=== PATIENT | male | born 1935 | race Caucasian/White ===

== ENCOUNTER 2017-02-22 08:17 | Inpatient (IN) | payer MEDICARE, OTHER ==
[~2017-02-22] VITALS: Ht 182.9 cm; Wt 78.6 kg
[2017-02-22] VITALS (16 sets, daily range): BP systolic 131–172; BP diastolic 65–81; PULSE 67–80; RESP 13–18; O2SAT 93–99
[2017-02-22] MEDS ORDERED: MetoCLOpramide 5 mg/mL 2 mL Inj ONE (09:51)
[2017-02-22] MEDS ORDERED: Phenylephrine/NS 100 mCg/mL 10 mL Syringe IVPUSH ONE (09:51)
[2017-02-22] MEDS ORDERED: Ondansetron 2 mg/mL 2 mL Inj ONE (09:51)
[2017-02-22] MEDS ORDERED: Propofol 10,000 mCg/mL 20 mL Inj ONE (09:51)
[2017-02-22] MEDS ORDERED: Dexamethasone 4 mg/mL Inj ONE (09:51)
[2017-02-22] MEDS ORDERED: EPHEDrine/NS 5 mg/mL 5 mL Syringe ONE (09:51)
[2017-02-22] MEDS ORDERED: HYDROmorphone 1 mg/mL Inj ONE (09:51)
[2017-02-22] MEDS ORDERED: Alum-Mag Hydrox-Simeth 30 mL Suspension PO PRN (09:55)
[2017-02-22] MEDS ORDERED: Ondansetron 2 mg/mL 2 mL Inj IVPUSH PRN ×3 (09:55→20:35)
[2017-02-22] MEDS ORDERED: Polyethylene Glycol (PEG) 17 Gm Powder PO PRN ×2 (09:55→20:35)
[2017-02-22 10:33] LABS: BASOPHILS % (AUTO) 0.1 % (0-3); EOSINOPHILS % (AUTO) 2.9 % (0-5); Mean Corpuscular Hemoglobin 31.5 pg (27.0-35.0); Mean Corpuscular Volume 87.7 fL (81-100); NEUTROPHILS % (AUTO) 85.3 % (40-74); Platelet Count 144 bil/L (150-400)
[2017-02-22] MEDS: 0.9% Sodium Chloride 1,000 ML IV SCH ×2 (10:54→20:31)
[2017-02-22 11:07] LABS: Magnesium 1.9 mg/dL (1.6-2.6)
[2017-02-22 11:14] LABS: APPEARANCE,URINE HAZY (CLEAR,HAZY); COLOR,URINE STRAW (YELLOW)
[2017-02-22 11:15] LABS: OCCULT BLOOD,URINE SMALL (NEGATIVE); UROBILINOGEN,URINE NORMAL (NORMAL)
[2017-02-22] MEDS ORDERED: Potassium Chloride 20 mEq SR Tablet PO ONE (11:45)
--- NOTE | 2017-02-22 12:18 | DRSVH ---
PROCEDURE: X-RAY CHEST ONE VIEW, PORTABLE ([id number]) INDICATIONS: preop TECHNIQUE: One view of the chest was acquired. COMPARISON: [facility], , XR CXR 2 VIEW, 09/02/2000, 9:32. FINDINGS: Surgical changes and devices: None. Lungs and pleura: No pleural effusions or pneumothorax. Lungs are clear. Chronic elevation right h emidiaphragm. Mediastinum: Mediastinal contours appear normal. Heart size is normal. Bones and chest wall: No suspicious bony lesions. Overlying soft tissues appear unremarkable. IMPRESSION: No acute cardiopulmonary disease. Dictated by: Michoacano Tavera [facility] Interpreted: Katie Kaur MD on 02/22/2017 at 11:07 Approved by: Katie Kaur MD, PhD on 02/22/2017 at 12:14
--- NOTE | 2017-02-22 13:03 | DRSVH ---
PROCEDURE: X-RAY PELVIS, ONE OR TWO VIEWS ([id number]) INDICATIONS: GLF, AP PELVIS X-RAY, AP LATERAL HIP 2 VIEW TECHNIQUE: Single frontal view of the pelvis acquired. COMPARISON: [facility], CR, XR FEMUR 2VW LT, 02/22/2017, 11:30. [facility], CR, XR HIP 2VW LT, 02/22/2017, 11:30. Outside Film, CR, XR HIP 2VW LT, 02/22/2017, 5:58. FINDINGS: Bones: No previously unidentified fractures or dislocations. No suspicious bony lesions. Soft tissues: Visualized bowel gas pattern is normal. No suspicious soft tissue calcifications. IMPRESSION: Again noted is the mildly impacted and slightly angulated subcapital femoral neck fractur e on the left and no additional injury is seen. Dictated by: Chris Hayes M.D. on 02/22/2017 at 13:01 Approved by: Chris Hayes M.D. on 02/22/2017 at 13:02
--- NOTE | 2017-02-22 13:04 | DRSVH ---
PROCEDURE: X-RAY LEFT HIP COMPLETE, MINIMUM TWO VIEWS ([id number]) INDICATIONS: GLF, AP LATERAL FEMUR TO KNEE, 2 VIEW, PRE-OP TECHNIQUE: 2 views of the hip were acquired. COMPARISON: Outside Film, CR, XR HIP 2VW LT, 02/22/2017, 5:58. FINDINGS: Bones: No previously unidentified fractures or dislocations. There is a mildly impacted and slightl y angulated subcapital left femoral neck fracture No suspicious bony lesions. The visualized pelvic ring appears intact. Soft tissues: No suspicious soft tissue calcifications or masses. IMPRESSION: Stable appearance of the subcapital femoral neck fracture on the left with reference to t he outside comparison films from [facility] Dictated by: Chris Hayes M.D. on 02/22/2017 at 13:02 Approved by: Chris Hayes M.D. on 02/22/2017 at 13:03
--- NOTE | 2017-02-22 13:06 | DRSVH ---
PROCEDURE: X-RAY LEFT FEMUR, TWO VIEWS ([id number]) INDICATIONS: HIP FRACTURE; PREOPERATIVE PLANNING TECHNIQUE: 2 views of the femur were acquired. COMPARISON: None. FINDINGS: Bones: No previously identified fractures or dislocations. No suspicious bony lesions. The mildly impacted and slightly angulated subcapital left femoral neck fracture is not accompanied by additiona l injury more inferiorly. Soft tissues: No suspicious soft tissue calcifications or masses. IMPRESSION: Femoral neck fracture as discussed, but no injury below that area involving the left femu r or knee. Dictated by: Chris Hayes M.D. on 02/22/2017 at 13:03 Approved by: Chris Hayes M.D. on 02/22/2017 at 13:04
[2017-02-22] MEDS ORDERED: LORA1TAB PO (15:07)
[2017-02-22] MEDS ORDERED: PRAM0.252 PO (15:07)
[2017-02-22] MEDS ORDERED: FLUD0.1T PO (15:07)
[2017-02-22] MEDS ORDERED: GABA-500 PO (15:07)
--- NOTE | 2017-02-22 16:38 | PCM.HPMED ---
Subjective Date of Service Feb 22, 2017 Primary Provider: Admitting Physician: Yannick Zepeda MD Primary Care Physician: Vinny Rodas MD Attending Physician: Yannick Zepeda MD Admit Status: Direct Admit, Full Admit, Admit to Red Team Chief Complaint: Ground-level fall/5 hours History of Present Illness: 82-year-old gentleman with no significant past medical history was transferred from [facility] due to left hip fracture following ground-level fall 5 hours ago. Patient states he sometimes sleepwalks and had GLF at 1 AM this morning while sleepwalking. Complains of left hip pain. Did not hit head. Fludrocortisone listed as home medication but patient not sure whether he is currently taking it or why he is taking it. He states he has worsening bilateral feet numbness and decreased sensation for the last 1 month. Merged with [facility] course:XR left femoral neck fracture. Labs unremarkable. transferred to [facility] for orthopedic evaluation Review of Systems: A comprehensive review of systems performed, pertinent positives and negatives included in history of present illness Allergies Coded Allergies: No Known Allergies (Unverified , 02/22/17) Home Medications Fludrocortisone 0.1 mg tablet 2 tablets once daily.PATIENT NOT SURE OF THIS MED Gabapentin 100 mg by mouth at bedtime Pramipexole 0.5 mg tablet, 2 tablets at bedtime Lorazepam 1 mg po prn hs for sleep PMH Melanoma of right face 2000 Surgical History Appendicectomy Melanoma resection Spine surgery,L4L5 decompression 2012 Family History Reviewed and unremarkable Social History Hx Alcohol Use: Yes Alcoholic Drinks Per Day: 5 a week Hx Substance Use: No Exam Vital Signs Vital Sign - Last Date Time Temp Pulse Resp B/P Pulse Ox O2 Delivery O2 Flow Rate FiO2 02/22/17 13:24 37.0 68 18 146/78 93 Nasal Cannula 4.00 Exam Gen. patient is lying comfortably in hospital bed HEENT: Head is normocephalic atraumatic, Pupils equal and reactive, extraocular movements intact, Lungs clear to auscultation bilaterally Heart regular rate and rhythm without murmurs gallops or rubs Abdomen soft nontender without hepatosplenomegaly Extremities pulses are present dorsalis pedis posterior tibialis and radial. Left hip tenderness on passive movement. Psych alert and oriented to person place and time Neuro cranial nerves II through XII are grossly intact Lymph: There is no lymphadenopathy appreciated in the cervical supra infraclavicular regions : no vu Lab and Diagnostics Result Diagram: 02/22/17 1024 02/22/17 1024 X-Rays, CTs and MRIs PROCEDURE: X-RAY LEFT FEMUR, TWO VIEWS ([id number]) INDICATIONS: HIP FRACTURE; PREOPERATIVE PLANNING IMPRESSION: Femoral neck fracture as discussed, but no injury below that area involving the left femur or knee. Dictated by: Chris Hayes M.D. on 02/22/2017 at 13:03 PROCEDURE: X-RAY CHEST ONE VIEW, PORTABLE ([id number]) INDICATIONS: preop IMPRESSION: No acute cardiopulmonary disease. Dictated by: Michoacano Tavera [facility] Interpreted: Katie Kaur MD on 02/22/2017 at 11:07 12-lead ECG NSR Assessment & Plan 82-year-old gentleman with no significant past medical history was transferred from [facility] due to left hip fracture following ground-level fall 5 hours ago. # Left femoral fracture,acute,poa -EKG,CXR unremarkable -Patient's low risk and medically optimized for procedure -Pain control with morphine -SCD for dvt ppx for now -Orthopedics Dr. Maddox consulted -Urinalysis negative #Ground-level fall -Multifactorial(suspected bilateral lower extremity peripheral neuropathy, sleepwalking, use of benzodiazepines -will consider stopping lorazepam upon discharge. Continue Neurontin for peripheral neuropathy Patient admitted under inpatient status with expected length of stay > 2 midnights for severity of present symptoms, complexities of treatment plan and risk for adverse events full code ,verified from patient Yannick Zepeda MD Feb 22, 2017 16:38
[2017-02-22] MEDS ORDERED: LORazepam 1 mg Tablet PO PRN (16:50)
--- NOTE | 2017-02-22 16:55 | NUR ---
Admit Patient arrives to [facility] alert and oriented on 4 liters of oxygen via nasal cannula, states pain is within a tolerable level. Denies any nausea, chest pain or shortness of breath. Patient has easily palpable dorsal pedal pulse, is able to move left lower extremity and has sensation to lower extremity. Patient does state that he has some baseline bilateral tingling to the toes. Ordered IV fluids administered. Care is ongoing.
--- NOTE | 2017-02-22 16:57 | NUR ---
Off Unit Patient off unit to OR. Upon transfer patient alert and oriented, states pain is within a tolerable level. Patient still has palpable pulse and is able to move and feel lower extremity. Patient continues to have some baseline tingling to bilateral toes. Anticipate return to floor.
--- NOTE | 2017-02-22 19:07 | PCM.HPANE ---
Patient Data Date of Service: Feb 22, 2017 ([id number]) Surgeon Admitting Provider:Yannick Zepeda MD Attending Provider:Yannick Zepeda MD Primary Care Physician:Vinny Rodas MD Other Provider: Reason for Visit Left Hip Fx Glf LEFT HIP FX GLF Ht/WT & BMI Height (Feet): 6 Height (Inches): 0.00 Weight (Kilograms): 79.000 Body Mass Index 23.59 Allergies Coded Allergies: No Known Allergies (Unverified , 02/22/17) Past Anesthesia History Anesthesia History: Denies:: Anesthesia Reactions MRSA MRSA: No Medications Hypertension Medication: No Home Meds Incl Beta Mele: No Reported Medications Lorazepam 1 Mg Tablet1 Mg PO HS PRN For Insomnia Ref 0 02/22/17 Pramipexole Dihydrochloride (Mirapex)0.25 Mg Tablet0.25 Mg PO 02/22/17 Gabapentin 100 Mg [id number] Mg PO DAILY 30 Days Ref 0 02/22/17 Fludrocortisone Acetate 0.1 Mg Tablet0.1 Mg PO UD 02/22/17 History History of ENT Problems?: No HEENT History: Positive for:: Sinus Problem (some kind of infection) Denies:: Cataracts (10 years ago) Dysphagia Glaucoma Denture Type: None Teeth Condition: Tooth Decay Missing Teeth Hx of Heart Problems?: No Cardiovascular History: Positive for:: Irregular Heartbeat Denies:: Cardiac Surgery Chest Pain Congestive Heart Failure Edema Heart Murmur Hypertension Pacemaker Hx of Respiratory Problem?: No Respiratory History: Denies:: Asthma COPD Chest Surgery Emphysema Pneumonia Tuberculosis Hx Neurologic Problems?: Yes Neurological History: Positive for:: Dizziness Denies:: Alzheimer's Disease CVA Dementia Headaches Parkinson's Disease Seizures TIA Other Neurological Pertinent: Restless legs Hx of GI Problems?: No Gastrointestinal History: Denies:: Gastroesphageal Reflux Hx of Problems?: Yes Genitourinary History: Positive for:: Urinary Tract Infection Denies:: Kidney Stones Other Pertinent History: urge incontinace "have to go and can't stop it" Male Hx: Denies:: Prostate Problems Scrotal Mass Testicular Surgery Hx Musculoskeletal Problems?: Yes Musculoskeletal History: Denies:: Back Injury Joint Replacement Musculoskeletal Trauma Other History/Comment L hip fracture Hx of Psycho/Social Problems?: Yes Psycho Social History: Positive for:: Anxiety Denies:: Bipolar Disorder Hx Depression Suicide Attempt Hx Surgeries?: Yes (Back and appendicitis) Hx Any Other Health Problems?: Yes Other History: Positive for:: Cancer (melanoma face ) Hospitalization History Blood Transfusions: Positive for:: Accept Blood Products? Denies:: Blood Transfuse Reaction Blood Transfusions Hx Alcohol Use: YesAlcoholic Drinks Per Day: 5 a weekHx Substance Use: No Smoking Status: Never Smoker Have You Smoked inLast 12 mo: No Stop/Bang Treated for Sleep Apnea?: Yes (no treatmnt last 3-4 years) S-Snoring: Do You Snore Loudly: Yes T-Tired: feel tired, fatigued: Yes O-Obsered: Observed not breath: Yes P-Blood Pressure: treated: No B- Body Mass Index > 35 kg/m2: No A- Age over 50: Yes N- Neck Large Circumference: No G- Gender Male: Yes ALISSON Total Score: 4 ALISSON Risk Assessment: High Risk, =/>3 Yes ALISSON Category 1: Yes Risk Assessment Category Category 1A: Patient has history of documented sleep apnea, and HAS NOT received any narcotic, sedative or anesthesia administration during this stay. Category 1B: Patient has history of documented sleep apnea, and HAS received any narcotic , sedative or anesthesia administration during this stay Category 2: Patient has SUSPECTED Obstructive Sleep Apnea, and HAS received any narcotic , sedative or anesthesia administration during this stay. Category 3: Patient has SUSPECTED Obstructive Sleep Apnea and HAS NOT received narcotic, sedative or anesthesia administration during this stay. Category 4: Outpatient in Procedural Areas with known sleep apnea or who screen positive for High Risk via the STOP/BANG questionnaire. Exam Exam Vital Signs Vital Signs Date Time Temp Pulse Resp B/P Pulse Ox O2 Delivery O2 Flow Rate FiO2 02/22/17 13:24 37.0 68 18 146/78 93 Nasal Cannula 4.00 02/22/17 12:42 67 General Appearance: Alert, Oriented X3, Cooperative, No Acute Distress HEENT/AIRWAY: MP 2, Neck Movement (from), Mouth Opening (>3), Other (tmd>3) Lungs: Diminished Heart: Exam Unremarkable, Regular Rate/Rhythm, Normal S1, Normal S2, No Murmurs /Rubs/Gallops Meds/Labs/Diagnostics Admission Meds Current Medications Sodium Chloride (Normal Saline) 1,000 ml @ 70 mls/hr [id number] IV Last administered on 02/22/17 10:54; Start 02/22/17 at 09:52 Potassium Chloride (K-Dur) 40 meq ONCE ONCE PO Last administered on 02/22/17 12:20; Start 02/22/17 at 11:45; Stop 02/22/17 at 11:57; Status DC Labs Test 02/22/17 10:24 02/22/17 10:34 White Blood Count 10.4th/mm3 (3.8-10.1) Red Blood Count 3.91mil/mm3 (4.40-5.80) Hemoglobin 12.3g/dL (13.8-17.2) Hematocrit 34.3% (41.0-50.0) Mean Corpuscular Volume 87.7fL (81-100) Mean Corpuscular Hemoglobin 31.5pg (27.0-35.0) Mean Corpuscular Hemoglobin Concent 35.9% (32.0-37.0) Red Cell Distribution Width 12.6% (12.3-15.4) Platelet Count 144bil/L (150-400) Neutrophils (%) (Auto) 85.3% (40-74) Lymphocytes (%) (Auto) 6.4% (14-46) Monocytes (%) (Auto) 5.0% (4-12) Eosinophils (%) (Auto) 2.9% (0-5) Basophils (%) (Auto) 0.1% (0-3) Prothrombin Time 10.7sec (8.1-12.5) Prothromb Time International Ratio 1.00ratio Sodium Level 141mEq/L (134-144) Potassium Level 3.3mEq/L (3.5-5.2) Chloride Level 104mEq/L (97-108) Carbon Dioxide Level 23mmol/L (18-29) Blood Urea Nitrogen 22mg/dL (8-27) Creatinine 0.75mg/dL (0.76-1.27) Estimat Glomerular Filtration Rate 105mL/min (>59) Glucose Level 101mg/dL (60-99) Calcium Level 8.6mg/dL (8.5-10.1) Magnesium Level 1.9mg/dL (1.6-2.6) Total Bilirubin 1.1mg/dL (0.0-1.2) Aspartate Amino Transf (AST/SGOT) 22U/L (0-50) Alanine Aminotransferase (ALT/SGPT) 17U/L (0-44) Alkaline Phosphatase 49U/L (25-160) Total Protein 6.1g/dL (6.4-8.4) Albumin 4.0g/dL (3.4-5.0) Hold Dumont Top Tube Received (Received) Urine Color Straw (YELLOW) Urine Appearance Hazy (CLEAR,HAZY) Urine pH 7.0 (5.0-8.0) Urine Specific [place] 1.015 (1.003-1.035) Urine Protein Negativemg/dL (NEG,TRACE) Urine Glucose (UA) Negativemg/dL (NEGATIVE) Urine Ketones Negativemg/dL (NEGATIVE) Urine Occult Blood Small (NEGATIVE) Urine Nitrite Negative (NEGATIVE) Urine Bilirubin Negative (NEGATIVE) Urine Urobilinogen Normalmg/dL (NORMAL) Urine Leukocyte Esterase Negative (NEGATIVE) Urine RBC 3-10/hpf (0-2) Urine WBC 0-5/hpf (0-5) Urine Epithelial Cells Occasional/hpf (NONE-MOD) Urine Crystals None seen (NONE SEEN) Urine Bacteria None/hpf (NONE-FEW) Urine Hyaline Casts None/lpf (NONE) Urine Granular Casts None seen (NONE SEEN) Urine Waxy Casts None seen (NONE SEEN) Urine Red Blood Cell Casts None seen (NONE SEEN) Urine White Blood Cell Casts None seen (NONE SEEN) Urine Mucus None seen (None Seen) Urine Trichomonas None seen (NONE SEEN) Urine Yeast None (NONE SEEN) Urinalysis Comment None Urine Culture Reflexed Not indicated Plan Impression Patient chart reviewed, patient interviewed and anesthestic plan with risks, benefits, and alternatives discussed, and informed consent obtained. NPO per Anesth. Guidelines: Yes ASA Physical Status: ASA2 Plus Emergency Anesthetic Plan: GA Bene/Risks/Altern/Consents: Yes HP Complete Prior to Induction: Yes Avni Mathews MD Feb 22, 2017 19:07
[2017-02-22] MEDS ORDERED: Lactated Ringer's 1,000 ML IV SCH (19:08)
[2017-02-22] MEDS ORDERED: Lactated Ringer's 500 ML IV PRN (19:08)
[2017-02-22] MEDS ORDERED: EPHEDrine Sulfate 50 mg/mL Inj IVPUSH PRN (19:10)
[2017-02-22] MEDS ORDERED: fentaNYL-PF 50 mCg/mL 2 mL Inj IVPUSH PRN (19:10)
[2017-02-22] MEDS ORDERED: HYDROmorphone 1 mg/mL Inj IVPUSH PRN (19:10)
[2017-02-22] MEDS ORDERED: Phenylephrine 10,000 mCg/mL Inj IVPUSH PRN (19:10)
[2017-02-22] MEDS ORDERED: Dexamethasone 4 mg/mL Inj IVPUSH PRN (19:10)
[2017-02-22] MEDS ORDERED: MetoCLOpramide 5 mg/mL 2 mL Inj IVPUSH PRN (19:10)
--- NOTE | 2017-02-22 20:12 | DRSVH ---
PROCEDURE: X-RAY LEFT HIP COMPLETE, MINIMUM TWO VIEWS ([id number]) INDICATIONS: LEFT HIP ORIF TECHNIQUE: Multiple intraoperative views of the hip were acquired. COMPARISON: None. FINDINGS: Bones: Multiple intraoperative fluoroscopic views demonstrate cannulated screw placement through a fe moral neck fracture. IMPRESSION: Left femoral neck ORIF. Dictated by: Jaycee Harvey M.D. on 02/22/2017 at 20:10 Approved by: Jaycee Harvey M.D. on 02/22/2017 at 20:11
[2017-02-22] MEDS ORDERED: diphenhydrAMINE 25 mg Capsule PO PRN (20:35)
[2017-02-22] MEDS ORDERED: Magnesium Hydroxide 10 mL Oral Concentration PO PRN (20:35)
[2017-02-22] MEDS ORDERED: Sodium Biphos-Phos 133 mL Enema RECTAL PRN (20:35)
--- NOTE | 2017-02-22 21:07 | PCM.ANEP1 ---
Post Anesthesia PACU Phase 1 Assessment Date of Service: Feb 22, 2017 Vital Signs Vital Signs Date Time Temp Pulse Resp B/P Pulse Ox O2 Delivery O2 Flow Rate FiO2 02/22/17 21:05 80 13 141/78 96 Nasal Cannula 4 02/22/17 21:00 79 13 134/68 96 Nasal Cannula 4 02/22/17 20:55 72 16 137/74 96 Nasal Cannula 4 02/22/17 20:50 71 16 144/66 96 Nasal Cannula 4 02/22/17 20:45 72 16 141/65 96 Nasal Cannula 4 02/22/17 20:40 70 16 143/67 95 Nasal Cannula 4 02/22/17 20:35 73 16 137/68 95 Nasal Cannula 4 02/22/17 20:30 73 13 144/72 94 Nasal Cannula 3 02/22/17 20:25 72 16 135/71 95 Nasal Cannula 3 02/22/17 20:20 74 16 131/70 95 Nasal Cannula 3 02/22/17 20:15 73 16 149/71 99 Simple Mask 8 02/22/17 20:10 36.7 73 16 140/71 99 Simple Mask 8 02/22/17 13:24 37.0 68 18 146/78 93 Nasal Cannula 4.00 Anesthetic Administered: GA Level of Alertness: Awake, talking SANCHEZ's with Equal Strength: Yes Pain: Yes Pain Scale Score: 4 Nausea or Vomiting: No CV Function & Hydration Stable: Yes Airway Device: none Oxygen Delivery: Nasal Cannula Lungs: Diminished Summary 02/22/17 21:05 80 13 141/78 96 Nasal Cannula 4 PACU Phase 2 Assessment Complications: No Follow up Care: N/A Patient Instructions Provided: N/A Avni Mathews MD Feb 22, 2017 21:07
--- NOTE | 2017-02-22 21:18 | DRSVH ---
PROCEDURE: X-RAY PELVIS W/LAT HIP (LT) ([id number]) INDICATIONS: post op hip fracture TECHNIQUE: AP pelvis and lateral view of the left hip acquired. COMPARISON: None. FINDINGS: Bones: Patient is status post left femoral neck ORIF with hardware components in expected positions. The hip joint appears congruent. The visualized bony structures appear intact. Soft tissues: Overlying postoperative changes are noted. No suspicious soft tissue densities. IMPRESSION: Status post left femoral neck ORIF. Dictated by: Jaycee Harvey M.D. on 02/22/2017 at 21:16 Approved by: Jaycee Harvey M.D. on 02/22/2017 at 21:17
[2017-02-22 22:16] LABS: APPEARANCE,URINE CLEAR (CLEAR,HAZY); COLOR,URINE YELLOW (YELLOW); OCCULT BLOOD,URINE MODERATE (NEGATIVE); UROBILINOGEN,URINE NORMAL (NORMAL)
[2017-02-23] VITALS (8 sets, daily range): BP systolic 111–170; BP diastolic 64–88; PULSE 69–89; RESP 16–19; O2SAT 92–98
[2017-02-23] MEDS: 0.9% Sodium Chloride 1,000 ML IV SCH ×2 (00:10→03:12)
[2017-02-23] MEDS: Sodium Chloride LOK Flush 10 mL Syringe IV SCH ×3 (00:30→16:24)
[2017-02-23] MEDS: CeFAZolin Inj 2 GM in IV Premix 1 EACH IV SCH ×2 (00:50→09:00)
--- NOTE | 2017-02-23 03:02 | CONS ---
[address] [address] CONSULTATION REPORT PATIENT: BERNARDO FLYNN : 1935 MR#: [id number] ADMIT: 02/22/2017 JOB ID: [id number] DATE OF SERVICE: 02/22/2017 CHIEF COMPLAINT: An 82-year-old male who fell, ground level fall at [place] when he tripped while sleepwalking. The patient sustained an valgus impacted left femoral neck fracture. The patient requested transfer to [facility] and he was transported by air. The patient was admitted to the hospitalist service. CPT Code orthopedic consultation [id number] decision for surgery. The patient is having moderate discomfort in the left hip. Not moving the hip decreases his pain. REVIEW OF SYSTEMS: HEENT: No blurring of vision. Respiratory: No shortness of breath. Cardiovascular: No chest pain. GI: No nausea, vomiting. : No dysuria. Musculoskeletal: Left hip pain. Neuro: No headache or dizziness. Hematologic: No easy bleeding or bruising. Psychiatric: No anxiety or depression. ALLERGIES: None. CURRENT MEDICATIONS: 1. Fludrocortisone 0.1 mg 2 tablets once daily. Questionable if this patient takes this medication. 2. Gabapentin 100 mg at bedtime. 3. Pramipexole 0.5 mg 2 tablets at bedtime. 4. Lorazepam 1 mg at bedtime for sleep. PAST MEDICAL HISTORY: Positive for melanoma of the face in 2000. PRIOR SURGERIES: Melanoma resection, appendectomy and spine surgery L4-5 decompression in 2012. SOCIAL HISTORY: The patient lives in [place]. He does have a son and a . We do not have a phone for the and I have tried contacting the son at least three times today, but I was only able to leave one message. The patient states he does drink five times a week. PHYSICAL EXAMINATION: Vital Signs: 182 cm, 79 kg male. Blood pressure 153/79, temperature 36.9, pulse of 79, O2 saturation 93% on 3 L. The patient is lying in bed. He is alert and oriented. He has pain in his left hip. The left leg is not shortened or rotated. Peripheral pulses are full. Skin is dry and intact. He is able to move his foot without difficulty. LABORATORY TESTING: White count 10,400, hemoglobin 12.3, hematocrit 34.3, platelet count 144,000. PT of 10.7, INR of 1. Sodium 141, potassium 3.3, chloride 104, CO2 23, BUN 22, creatinine 0.75, glucose random 101. Total protein at 6.1. The patient has already been made n.p.o. X-RAYS: Valgus impacted left femoral neck fracture. The fracture has stayed in position despite his long transport from [place] via airplane and then subsequent ambulance. IMPRESSION: Valgus impacted left femoral neck fracture. PLAN: We will plan for cannulated screw fixation of the left hip today. The patient is aware of the risks for bleeding, infection, pain and stiffness, possibility for damage to surrounding neurovascular structures. He is aware of the possibility for delayed union, nonunion, malunion and hardware failure and potential for additional surgery. Surgical consent has been signed. Cc: [facility]
--- NOTE | 2017-02-23 03:21 | NUR ---
Postop Patient back to floor around 2119 in own bed. A&Ox3 but sleepy, easily awakens with verbal stimuli. Heath patent and draining per gravity. On 4L NC. CPOx place- 97%. SCDs placed. Tele on- SR in 80s. Denies pain or discomfort. Oriented to room and call light.
[2017-02-23 05:40] LABS: BASOPHILS % (AUTO) 0.1 % (0-3); MONOCYTES % (AUTO) 2.2 % (4-12); Mean Corpuscular Hemoglobin 31.7 pg (27.0-35.0); Mean Corpuscular Volume 88.7 fL (81-100); NEUTROPHILS % (AUTO) 91.4 % (40-74); Platelet Count 148 bil/L (150-400)
--- NOTE | 2017-02-23 06:19 | OP ---
[address] [address] OPERATIVE REPORT PATIENT: BERNARDO FLYNN : 1935 MR#: [id number] ADMIT: 02/22/2017 JOB ID: [id number] DATE OF SURGERY: 02/22/2017 PREOPERATIVE DIAGNOSIS(ES): Impacted left femoral neck fracture. ICD 10 code S72.0028. POSTOPERATIVE DIAGNOSIS(ES): Impacted left femoral neck fracture. ICD 10 code S72.0028. PROCEDURE: Open reduction, internal fixation, valgus impacted left femoral neck fracture. CPT Code 06508. IMPLANTS UTILIZED: Synthes cannulated screws. SURGEON: Daniel Maddox MD. MAINTENANCE CONTROLLER: None. ANESTHESIA: General. ESTIMATED BLOOD LOSS: 50 mL. DRAINS: None. COMPLICATIONS: None. SPONGE AND NEEDLE: Count correct. SPECIMEN: No specimen to pathology. INDICATIONS: This is an 82-year-old male with sleepwalking and tripped and fell over at [place] where he lives this morning. He was transferred from [facility] in [place] to our facility today. The patient had been kept n.p.o. DESCRIPTION OF PROCEDURE: Under adequate general anesthesia, the patient was carefully removed from the bed and placed on the fracture table after he was already anesthetized. The right leg was placed in a scissor technique utilizing the Keiser fracture table. The left leg was also placed in a leg holding boot. No traction was utilized. The left hip was prepped and draped in sterile fashion. After appropriate time-out was called, x-rays were taken confirming good position of the fracture with maintenance of the valgus impacted position. An incision was fashioned along the inferior aspect of the greater trochanter. Incision was carried down to the tensor fascia ubaldo and the vastus lateralis. Portion of the vastus lateralis was swept from the bone. Utilizing the cannulated guide, three threaded Synthes guide pins were then directed in the femoral neck and head to slightly in the midline and one posterior. Image intensification confirmed good position of the guide pins in the AP and lateral views. Each of the guide pins was subsequently measured. The outer cortex was drilled and the self-tapping screws were then placed in under power. Most proximal screw utilized was a 95 mm short threaded screw. The other two screws were measured and 105 mm short threaded Synthes 7.5 mm cannulated screws were placed. Image intensification confirmed good position of the three screws in AP and lateral views. The guide pins were subsequently removed. There was good purchase within the bone. Permanent x-rays were taken with image intensification. The wound was irrigated with saline. The vastus lateralis was subsequently closed with running suture of #1 Vicryl. The tensor fascia ubaldo was closed with interrupted [id number] sutures of #1 Vicryl. Subcutaneous layers were closed with interrupted sutures of 0 and 2-0 Vicryl and skin was reapproximated with sharla. Xeroform and dry sterile dressing was applied. The patient was carefully taken off the fracture table and placed back in his bed. Permanent x-rays in the recovery room also confirmed good position of the hardware on AP and lateral views. PLAN: The patient may be partial weightbearing 50% of his body weight with a rolling walker with physical therapy. He does live in [place]. Takes numerous medications to help with sleep, but he also has problems with sleepwalking. He therefore would be at a high risk for falling. I did try contacting his son on three separate occasions today, but the phone number we have available there was no response from an individual. Perhaps another phone number may be able to be obtained. The patient will need to have sharla removed in two weeks. I suspect he will probably need long-term facility before trying before trying to be able to be returned to his regular home. He may see one of the PAs in follow up in two weeks and I will see him back at the six week postoperative time frame. I would suggest he remains partial weightbearing for that additional full six weeks. The patient is aware there is always the potential for delayed union, nonunion, malunion and a hardware failure with these fractures. Cc: [facility].
[2017-02-23] MEDS: Senna-Docusate 8.6-50 mg Tablet PO SCH ×2 (09:00→21:03)
--- NOTE | 2017-02-23 09:47 | PCM.PNORTH ---
Subjective Date of Service: Feb 23, 2017 Visit Information: Reason for Visit Left Hip Fx Glf Surgery/Surgery Date Post-Op Day # 1 Date of Admission: Feb 22, 2017 at 09:18 Hospital Day # Subjective Patient states he began having pain in his hip a few hours ago but states it is tolerable. He has no other concerns. Postop General: No Complaints, No Shortness of Breath, No Chest Pain, Good Appetite Pain Management: PO Objective Exam Objective Patient sitting up in bed eating breakfast Vital Signs and I/O Vital Sign - Last Date Time Temp Pulse Resp B/P Pulse Ox O2 Delivery O2 Flow Rate FiO2 02/23/17 08:21 36.9 85 16 170/88 98 Nasal Cannula 3.00 Intake and Output 02/22/17 02/22/17 02/23/17 Cumulative From/Thru 15:00 23:00 07:00 02/22/17 09:37 - 02/23/17 05:57 Intake Total 1058 ml 868 ml 1926 ml Output Total 750 ml 325 ml 1075 ml Balance 308 ml 543 ml 851 ml Intake Oral 0 ml 300 ml 300 ml IV Total 1058 ml 568 ml 1626 ml Output Urine Total 700 ml 325 ml 1025 ml Estimated Blood Loss 50 ml 50 ml # Bowel Movements 0 0 Lab & Micro Results Laboratory Tests Test 02/22/17 10:24 02/22/17 10:34 02/22/17 21:48 02/23/17 04:55 White Blood Count 10.4th/mm3 (3.8-10.1) 9.2th/mm3 (3.8-10.1) Red Blood Count 3.91mil/mm3 (4.40-5.80) 3.91mil/mm3 (4.40-5.80) Hemoglobin 12.3g/dL (13.8-17.2) 12.4g/dL (13.8-17.2) Hematocrit 34.3% (41.0-50.0) 34.7% (41.0-50.0) Mean Corpuscular Volume 87.7fL (81-100) 88.7fL (81-100) Mean Corpuscular Hemoglobin 31.5pg (27.0-35.0) 31.7pg (27.0-35.0) Mean Corpuscular Hemoglobin Concent 35.9% (32.0-37.0) 35.7% (32.0-37.0) Red Cell Distribution Width 12.6% (12.3-15.4) 12.7% (12.3-15.4) Platelet Count 144bil/L (150-400) 148bil/L (150-400) Neutrophils (%) (Auto) 85.3% (40-74) 91.4% (40-74) Lymphocytes (%) (Auto) 6.4% (14-46) 5.0% (14-46) Monocytes (%) (Auto) 5.0% (4-12) 2.2% (4-12) Eosinophils (%) (Auto) 2.9% (0-5) 1.0% (0-5) Basophils (%) (Auto) 0.1% (0-3) 0.1% (0-3) Prothrombin Time 10.7sec (8.1-12.5) Prothromb Time International Ratio 1.00ratio Sodium Level 141mEq/L (134-144) Potassium Level 3.3mEq/L (3.5-5.2) Chloride Level 104mEq/L (97-108) Carbon Dioxide Level 23mmol/L (18-29) Blood Urea Nitrogen 22mg/dL (8-27) Creatinine 0.75mg/dL (0.76-1.27) Estimat Glomerular Filtration Rate 105mL/min (>59) Glucose Level 101mg/dL (60-99) Calcium Level 8.6mg/dL (8.5-10.1) Magnesium Level 1.9mg/dL (1.6-2.6) Total Bilirubin 1.1mg/dL (0.0-1.2) Aspartate Amino Transf (AST/SGOT) 22U/L (0-50) Alanine Aminotransferase (ALT/SGPT) 17U/L (0-44) Alkaline Phosphatase 49U/L (25-160) Total Protein 6.1g/dL (6.4-8.4) Albumin 4.0g/dL (3.4-5.0) Hold Dumont Top Tube Received (Received) Urine Color Straw (YELLOW) Yellow (YELLOW) Urine Appearance Hazy (CLEAR,HAZY) Clear (CLEAR,HAZY) Urine pH 7.0 (5.0-8.0) 7.0 (5.0-8.0) Urine Specific [place] 1.015 (1.003-1.035) 1.015 (1.003-1.035) Urine Protein Negativemg/dL (NEG,TRACE) Negativemg/dL (NEG,TRACE) Urine Glucose (UA) Negativemg/dL (NEGATIVE) Negativemg/dL (NEGATIVE) Urine Ketones Negativemg/dL (NEGATIVE) Negativemg/dL (NEGATIVE) Urine Occult Blood Small (NEGATIVE) Moderate (NEGATIVE) Urine Nitrite Negative (NEGATIVE) Negative (NEGATIVE) Urine Bilirubin Negative (NEGATIVE) Negative (NEGATIVE) Urine Urobilinogen Normalmg/dL (NORMAL) Normalmg/dL (NORMAL) Urine Leukocyte Esterase Negative (NEGATIVE) Negative (NEGATIVE) Urine RBC 3-10/hpf (0-2) 3-10/hpf (0-2) Urine WBC 0-5/hpf (0-5) 0-5/hpf (0-5) Urine Epithelial Cells Occasional/hpf (NONE-MOD) Occasional/hpf (NONE-MOD) Urine Crystals None seen (NONE SEEN) None seen (NONE SEEN) Urine Bacteria None/hpf (NONE-FEW) None/hpf (NONE-FEW) Urine Hyaline Casts None/lpf (NONE) None/lpf (NONE) Urine Granular Casts None seen (NONE SEEN) None seen (NONE SEEN) Urine Waxy Casts None seen (NONE SEEN) None seen (NONE SEEN) Urine Red Blood Cell Casts None seen (NONE SEEN) None seen (NONE SEEN) Urine White Blood Cell Casts None seen (NONE SEEN) None seen (NONE SEEN) Urine Mucus None seen (None Seen) None seen (None Seen) Urine Trichomonas None seen (NONE SEEN) None seen (NONE SEEN) Urine Yeast None (NONE SEEN) None (NONE SEEN) Urinalysis Comment None None Urine Culture Reflexed Not indicated Not indicated Result Diagram: 02/23/17 0455 02/22/17 1024 General Appearance: Alert, Oriented X3, Cooperative, No Acute Distress Extremities: Distal Pulses Palpable, Warm, No Edema, No Compartment Syndrom Noted, Thigh & Calf Soft/Nontender, Cyanotic Postop Sensory Motor: Distal Motor Intact, Movement in Toes, Distal Sensation Intact, NVI Distally SURGICAL WOUND : Wound Location/Description Perioperative dressings c/d/i Activity: Ambulate with PT (50% WB with a FWW) Assessment & Plan Impression Postop day #1 left hip ORIF with cannulated screws Problems: Plan Patient is reportedly a sleep walker and takes multiple medications for sleep. He is likely at a higher risk for a fall due to his sleep walking and should be monitored carefully. Weightbearin% weightbearing on the left lower extremity with a front wheeled walker DVT prophylaxis: Lovenox 40 mg subcutaneous daily 3 weeks. Physical therapy for transfers, progressive ambulation, strengthening Wound care: Dressing will be changed tomorrow to an island dressing. Analgesia: Oral analgesia, preferably non-narcotic. Discharge plan: Discharge home vs SNF in 1-2 days. I have placed an order for compression stockings. Please apply bilateral thigh high compression stockings. Follow-up plan: In 2 weeks at [facility] with DIANA for wound check and at [address] Maddox with x-rays VTE Prophylaxis: Sub-Q Enoxaparin (40mg SQ QD [id number]) Roxana Acevedo PA-C Feb 23, 2017 09:47
--- NOTE | 2017-02-23 12:30 | PCM.PNMED ---
Subjective Date of Service Feb 23, 2017 Subjective Underwent ORIF, pain controlled. Exam Vital Signs Vital Sign - Last Date Time Temp Pulse Resp B/P Pulse Ox O2 Delivery O2 Flow Rate FiO2 02/23/17 12:23 36.1 69 16 139/70 94 Nasal Cannula 3.00 Intake and Output 02/22/17 02/22/17 02/23/17 Cumulative From/Thru 15:00 23:00 07:00 02/22/17 09:37 - 02/23/17 05:57 Intake Total 1058 ml 868 ml 1926 ml Output Total 750 ml 325 ml 1075 ml Balance 308 ml 543 ml 851 ml Intake Oral 0 ml 300 ml 300 ml IV Total 1058 ml 568 ml 1626 ml Output Urine Total 700 ml 325 ml 1025 ml Estimated Blood Loss 50 ml 50 ml # Bowel Movements 0 0 Exam Gen. patient is lying comfortably in hospital bed HEENT: Head is normocephalic atraumatic, Pupils equal and reactive, extraocular movements intact, Lungs clear to auscultation bilaterally Heart regular rate and rhythm without murmurs gallops or rubs Abdomen soft nontender without hepatosplenomegaly Extremities pulses are present dorsalis pedis posterior tibialis and radial. Left hip tenderness on passive movement. Psych alert and oriented to person place and time Neuro cranial nerves II through XII are grossly intact Lymph: There is no lymphadenopathy appreciated in the cervical supra infraclavicular regions : no vu IVs and Medications Medications Reviewed: Medications were reviewed in detail Lab and Diagnostics Result Diagram: 02/23/17 0455 02/22/17 1024 X-Rays, CTs and MRIs PROCEDURE: X-RAY LEFT FEMUR, TWO VIEWS ([id number]) INDICATIONS: HIP FRACTURE; PREOPERATIVE PLANNING IMPRESSION: Femoral neck fracture as discussed, but no injury below that area involving the left femur or knee. Dictated by: Chris Hayes M.D. on 02/22/2017 at 13:03 PROCEDURE: X-RAY CHEST ONE VIEW, PORTABLE ([id number]) INDICATIONS: preop IMPRESSION: No acute cardiopulmonary disease. Dictated by: Michoacano Tavera RRA Interpreted: Katie Kaur MD on 02/22/2017 at 11:07 12-lead ECG NSR Additional Diagnostics DATE OF SURGERY: 02/22/2017 PREOPERATIVE DIAGNOSIS(ES): Impacted left femoral neck fracture. ICD 10 code S72.0028. POSTOPERATIVE DIAGNOSIS(ES): Impacted left femoral neck fracture. ICD 10 code S72.0028. PROCEDURE: Open reduction, internal fixation, valgus impacted left femoral neck fracture. CPT Code 23196. IMPLANTS UTILIZED: Synthes cannulated screws. SURGEON: Daniel Maddox MD. Assessment & Plan 82-year-old gentleman with no significant past medical history was transferred from [facility] due to left hip fracture following ground-level fall 5 hours ago. # Left femoral fracture,acute,poa -Pain control with morphine -Lovenox 40 mg sc daily dvt ppx -Orthopedics Dr. Maddox -Urinalysis negative -PT #Ground-level fall -Multifactorial(suspected bilateral lower extremity peripheral neuropathy, sleepwalking, use of benzodiazepines -will consider stopping lorazepam upon discharge. Continue Neurontin for peripheral neuropathy Patient admitted under inpatient status with expected length of stay > 2 midnights for severity of present symptoms, complexities of treatment plan and risk for adverse events full code ,verified from patient Disposition: Discharge in 1-2 days to halfway facility VTE Prophylaxis: Sub-Q Enoxaparin (40mg SQ QD [id number]) VTE Mechanical Devices: Intermittant Pneumatic CD Yannick Zepeda MD Feb 23, 2017 12:30
--- NOTE | 2017-02-23 17:22 | NUR ---
Social Work: Initial Assessment/Multi-Disciplinary Rounds D: EMR reviewed. Please see Initial Assessment linked to this note for more information. Pt is an 82 y/o male admitted left hip fracture, ground level fall per H&P. Pt has a readmit risk score of 0. SW met with pt at bedside to conduct initial assessment. Pt was alert and oriented x3. SW explained role and wrote phone number on white board. SW provided "Your Discharge Planning Checklist" and encouraged pt to contact SW for any discharge planning questions. Pt had guests in the room and asked that SW complete assessment with spouse/DPOA Tammi Tinajero. Pt's insurance is Medicare and [facility] [employer] Supplemental. PCP is Regino Dye MD. Pt gave verbal consent to contact spouse/DPOA Tammi Lior [phone] for discharge planning. DPOA/advanced directive ppw discussed - ppw completed and SW encouraged pt to provide a copy to the hospital. Pt owns a 4WW which pt uses for ambulation. Pt is independent with all ADLs at baseline. Pt discussed in multidisciplinary rounds. Per multidisciplinary rounds, pt is not medically stable for discharge home today - PT recommending SNF for rehabilitation. SW received MD order for SNF. SW provided choice list to spouse and pt. Pt chose [facility]. SW confirmed with pt and family that SW will send referral, determine transportation options/potential [id number] costs. Pt's spouse stated pt would not be able to transport in her vehicle due to size of vehicle and pt's limitations with mobility. A: Pt's capacity for self-care assessed: Pt is independent at baseline. MD has ordered pt go to SNF for PT rehabilitation prior to returning home. Pt and family agreeable. P: SW to make referral to [facility] and determine transportation options/cost at time of discharge. SW to follow-up with pt and spouse regarding acceptance and transportation costs. Pt and spouse state money is not an issue in regard to transportation to SNF on [facility]. SW will continue to follow. CHAPARRO Macias Addendum: 02/23/17 at 1729 by GARRETT FAN Amended: Links added.
--- NOTE | 2017-02-23 18:30 | NUR ---
Respiratory Patient was on 4L via NC this AM at the start of shift. During the day he was weaned off supplemental O2 and is now on room air. CPO2 in place to monitor O2 levels. No s/s of respiratory distress and patient denies shortness of breath. During PT eval this AM, patient was satting WNL on room air.
[2017-02-23] MEDS: HYDROcodone-APAP 5-325 mg Tablet PO PRN (21:38)
[2017-02-24] VITALS (10 sets, daily range): BP systolic 96–145; BP diastolic 60–78; PULSE 62–87; RESP 16–21; O2SAT 92–97
[2017-02-24] MEDS: Sodium Chloride LOK Flush 10 mL Syringe IV SCH ×4 (00:49→23:08)
--- NOTE | 2017-02-24 01:41 | NUR ---
Heath catheter DC'd @ 3634. At approx 2230 patient voided 100cc of sung urine via urinal. At 0100, patient had been incontinent of urine requiring a total linen change. Brief worn. Will continue to monitor urine output and continue Q1 hour checks.
[2017-02-24 07:41] LABS: BASOPHILS % (AUTO) 0.4 % (0-3); EOSINOPHILS % (AUTO) 12.2 % (0-5); MONOCYTES % (AUTO) 7.8 % (4-12); Mean Corpuscular Hemoglobin 31.2 pg (27.0-35.0); Mean Corpuscular Volume 91.2 fL (81-100); NEUTROPHILS % (AUTO) 67.7 % (40-74); Platelet Count 144 bil/L (150-400)
[2017-02-24] MEDS: HYDROcodone-APAP 5-325 mg Tablet PO PRN (09:02)
[2017-02-24] MEDS: Senna-Docusate 8.6-50 mg Tablet PO SCH ×2 (09:02→20:04)
[2017-02-24] MEDS ORDERED: Potassium Chloride 20 mEq SR Tablet PO ONE (09:15)
--- NOTE | 2017-02-24 10:00 | NUR ---
Tele Received a call from [employer] about patient's heart rate and rhythm. Reported junctional tachycardia in the 120s for about 50 seconds at 0900 this AM. Patient asymptomatic, denied chest pain/discomfort, shortness of breath, and feeling like his heart was racing. Patient converted back into sinus rhythm. Hospitalist aware. Continuing to monitor for chest discomfort and shortness of breath, CPO2 in place, continuing telemetry monitoring.
--- NOTE | 2017-02-24 11:39 | PCM.PNMED ---
Subjective Date of Service Feb 24, 2017 Subjective No new complaints or events. Pain controlled. Had a brief episode of junctional tachycardia this morning Exam Vital Signs Vital Sign - Last Date Time Temp Pulse Resp B/P Pulse Ox O2 Delivery O2 Flow Rate FiO2 02/24/17 10:14 21 96/60 02/24/17 10:06 36.6 79 92 Room Air 02/23/17 12:23 3.00 Intake and Output 02/23/17 02/23/17 02/24/17 Cumulative From/Thru 15:00 23:00 07:00 02/22/17 09:37 - 02/24/17 06:28 Intake Total 1832 ml 300 ml 4058 ml Output Total 1000 ml 2075 ml Balance 832 ml 300 ml 1983 ml Intake Oral 920 ml 300 ml 1520 ml IV Total 912 ml 2538 ml Output Urine Total 1000 ml 2025 ml Estimated Blood Loss 50 ml # Voids 2 2 # Bowel Movements 0 0 Exam Gen. patient is lying comfortably in hospital bed HEENT: Head is normocephalic atraumatic, Pupils equal and reactive, extraocular movements intact, Lungs clear to auscultation bilaterally Heart regular rate and rhythm without murmurs gallops or rubs Abdomen soft nontender without hepatosplenomegaly Extremities pulses are present dorsalis pedis posterior tibialis and radial. Left hip tenderness on passive movement. Clean dressing Psych alert and oriented to person place and time Neuro cranial nerves II through XII are grossly intact Lymph: There is no lymphadenopathy appreciated in the cervical supra infraclavicular regions : no vu IVs and Medications Medications Reviewed: Medications were reviewed in detail Lab and Diagnostics Result Diagram: 02/24/1715 02/24/17 0715 X-Rays, CTs and MRIs PROCEDURE: X-RAY LEFT FEMUR, TWO VIEWS ([id number]) INDICATIONS: HIP FRACTURE; PREOPERATIVE PLANNING IMPRESSION: Femoral neck fracture as discussed, but no injury below that area involving the left femur or knee. Dictated by: Chris Hayes M.D. on 02/22/2017 at 13:03 PROCEDURE: X-RAY CHEST ONE VIEW, PORTABLE ([id number]) INDICATIONS: preop IMPRESSION: No acute cardiopulmonary disease. Dictated by: Michoacano MULLINS Interpreted: Katie Kaur MD on 02/22/2017 at 11:07 12-lead ECG NSR Additional Diagnostics DATE OF SURGERY: 02/22/2017 PREOPERATIVE DIAGNOSIS(ES): Impacted left femoral neck fracture. ICD 10 code S72.0028. POSTOPERATIVE DIAGNOSIS(ES): Impacted left femoral neck fracture. ICD 10 code S72.0028. PROCEDURE: Open reduction, internal fixation, valgus impacted left femoral neck fracture. CPT Code 50633. IMPLANTS UTILIZED: Synthes cannulated screws. SURGEON: Daniel Maddox MD. Assessment & Plan 82-year-old gentleman with no significant past medical history was transferred from [facility] due to left hip fracture following ground-level fall 5 hours ago. # Left femoral fracture,acute,poa -Pain control with morphine -Lovenox 40 mg sc daily dvt ppx -Orthopedics Dr. Maddox -Urinalysis negative -PT #Brief episode of junctional tachycardia -Asymptomatic, lasted 30 seconds, K 3.6 repleted -Continue telemetry #Ground-level fall -Multifactorial(suspected bilateral lower extremity peripheral neuropathy, sleepwalking, use of benzodiazepines -will consider stopping lorazepam upon discharge. Continue Neurontin for peripheral neuropathy Patient admitted under inpatient status with expected length of stay > 2 midnights for severity of present symptoms, complexities of treatment plan and risk for adverse events full code ,verified from patient Disposition: Discharge in 1-2 days to long-term facility for PT VTE Prophylaxis: Sub-Q Enoxaparin (40mg SQ QD [id number]) VTE Mechanical Devices: Intermittant Pneumatic CD Yannick Zepeda MD Feb 24, 2017 11:39
--- NOTE | 2017-02-24 11:40 | PCM.PNORTH ---
Subjective Date of Service: Feb 24, 2017 Visit Information: Reason for Visit Left Hip Fx Glf Surgery/Surgery Date Post-Op Day # 2 Date of Admission: Feb 22, 2017 at 09:18 Hospital Day # Subjective Patient states he is having more pain today than yesterday. He states he got up with PT and had nausea immediately after standing. He states he sat down and took a few breaths and got back up and had no complications. Postop General: No Shortness of Breath, No Chest Pain, Good Appetite Pain Management: PO Objective Exam Objective Patient laying in bed Vital Signs and I/O Vital Sign - Last Date Time Temp Pulse Resp B/P Pulse Ox O2 Delivery O2 Flow Rate FiO2 02/24/17 10:14 21 96/60 02/24/17 10:06 36.6 79 92 Room Air 02/23/17 12:23 3.00 Intake and Output 02/23/17 02/23/17 02/24/17 Cumulative From/Thru 15:00 23:00 07:00 02/22/17 09:37 - 02/24/17 06:28 Intake Total 1832 ml 300 ml 4058 ml Output Total 1000 ml 2075 ml Balance 832 ml 300 ml 1983 ml Intake Oral 920 ml 300 ml 1520 ml IV Total 912 ml 2538 ml Output Urine Total 1000 ml 2025 ml Estimated Blood Loss 50 ml # Voids 2 2 # Bowel Movements 0 0 Lab & Micro Results Laboratory Tests Test 02/24/17 07:15 White Blood Count 8.2th/mm3 (3.8-10.1) Red Blood Count 3.62mil/mm3 (4.40-5.80) Hemoglobin 11.3g/dL (13.8-17.2) Hematocrit 33.0% (41.0-50.0) Mean Corpuscular Volume 91.2fL (81-100) Mean Corpuscular Hemoglobin 31.2pg (27.0-35.0) Mean Corpuscular Hemoglobin Concent 34.2% (32.0-37.0) Red Cell Distribution Width 12.9% (12.3-15.4) Platelet Count 144bil/L (150-400) Neutrophils (%) (Auto) 67.7% (40-74) Lymphocytes (%) (Auto) 11.5% (14-46) Monocytes (%) (Auto) 7.8% (4-12) Eosinophils (%) (Auto) 12.2% (0-5) Basophils (%) (Auto) 0.4% (0-3) Sodium Level 143mEq/L (134-144) Potassium Level 3.6mEq/L (3.5-5.2) Chloride Level 107mEq/L (97-108) Carbon Dioxide Level 23mmol/L (18-29) Blood Urea Nitrogen 22mg/dL (8-27) Creatinine 0.70mg/dL (0.76-1.27) Estimat Glomerular Filtration Rate 114mL/min (>59) Glucose Level 105mg/dL (60-99) Calcium Level 8.3mg/dL (8.5-10.1) Magnesium Level 2.0mg/dL (1.6-2.6) Total Bilirubin 0.8mg/dL (0.0-1.2) Aspartate Amino Transf (AST/SGOT) 25U/L (0-50) Alanine Aminotransferase (ALT/SGPT) 13U/L (0-44) Alkaline Phosphatase 45U/L (25-160) Total Protein 5.6g/dL (6.4-8.4) Albumin 3.4g/dL (3.4-5.0) Result Diagram: 02/24/1771402/24/17714 General Appearance: Alert, Oriented X3, Cooperative, No Acute Distress Extremities: Distal Pulses Palpable, No Compartment Syndrom Noted, Thigh & Calf Soft/Nontender, Cyanotic Postop Sensory Motor: Distal Motor Intact, Movement in Toes, Distal Sensation Intact, NVI Distally SURGICAL WOUND : Wound Location/Description Perioperative dressing c/d/i Incision General Appearance: No Direct Observation Activity: Ambulate with PT (50% WB with a FWW) Assessment & Plan Impression POD#2 left hip ORIF with cannulated screws Problems: Plan Patient is reportedly a sleep walker and takes multiple medications for sleep. He is likely at a higher risk for a fall due to his sleep walking and should be monitored carefully. Weightbearin% weightbearing on the left lower extremity with a front wheeled walker DVT prophylaxis: Lovenox 40 mg subcutaneous daily 3 weeks. Physical therapy for transfers, progressive ambulation, strengthening Wound care: Dressing will be changed to an island dressing today. Analgesia: Oral analgesia, preferably non-narcotic. Discharge plan: Discharge home vs SNF tomorrow, likely SNF as patient has been struggling with physical therapy. Follow-up plan: In 2 weeks at [facility] with PA for wound check and at [address] Maddox with x-rays VTE Prophylaxis: Sub-Q Enoxaparin (40mg SQ QD [id number]) Roxana Acevedo PA-C Feb 24, 2017 11:40
--- NOTE | 2017-02-24 13:41 | NUR ---
Confusion Patient reports feeling confused after taking pain medication. Per report from NOC shift RN, patient thought he was in a glass room last night and forgot where he was. A&OX3 during this shift. Paged hospitalist for a possible Tylenol order for pain control rather than narcotics.
--- NOTE | 2017-02-24 13:43 | NUR ---
BP/Activity While up with physical therapy, patient felt nauseous and was dry heaving during the first sit to stand. Patient was sat down on the edge of the bed and once this nausea passed, patient was stood once more. During second stand, patient stated he felt much better and denied nausea. VS taken during second sit to stand and patient had a drop in BP when he stood up. Asymptomatic during second stand. Patient has a history of orthostatic hypotension. Continuing to monitor BP. Crosby alarm in place.
--- NOTE | 2017-02-24 16:00 | NUR ---
Social Work: Continued Discharge Planning/Multidisciplinary Rounds D: EMR reviewed. Pt is on day 2 of hospitalization. Pt discussed in multidisciplinary rounds. Per multidisciplinary rounds, pt is anticipated to discharge tomorrow. SNF orders received. Choice list provided. Pt chose [facility]. XIOMARA provided access to [facility]. T/C to Misti at [facility] to coordinate referral. Misti stated that referrals must be reviewed by Maylin Evans in Medical Records [phone]. Maylin is only available Saturday-Saturday. Misti stated that XIOMARA can fax over pt's clinicals and updated therapy notes and she will make sure Maylin receives information Saturday (02/25). XIOMARA confirmed fax number [phone]. SW will fax H&P, facesheet, updated therapy notes, and progress notes. SW to follow up with [facility] regarding referral before multidisciplinary rounds tomorrow. Misti was not sure about transportation services - encouraged XIOMARA to discuss transportation options with Maylin. XIOMARA will follow-up with Maylin tomorrow. A: Pt for whom a SNF is medically necessary. P: XIOMARA will fax H&P, facesheet, updated therapy notes, and progress notes to [phone] ([facility]). SW to follow-up with Maylin Evans in Medical Records [phone] regarding referral. SW to fax referral documents today. XIOMARA will continue to follow. CHAPARRO Macias Addendum: 02/24/17 at 1636 by GARRETT FAN Faxed clinicals to [facility] - T/C to Chloé at [facility] who confirmed they received fax and will give documentation to Maylin for review tomorrow. SW updated pt and spouse on progress. Spouse will go to [facility] tomorrow to talk to admissions and update SW. XIOMARA confirmed follow-up call with [facility] tomorrow - spouse and pt agreeable. CHAPARRO Macias
[2017-02-25 00:26] VITALS: BP 148/78; PULSE 69; RESP 20; O2SAT 98
--- NOTE | 2017-02-25 04:45 | NUR ---
Pain/ Insomnia Tylenol PO given right before shift change by day shift, and pt. seems to be tolerating it well. Pt. has been alert and oriented x3, and no confusion noted. Pt. was having some insomnia. Lorazepam PO was given, and was effective. Pt. has been sleeping since midnight. Will continue to monitor.
[2017-02-25 05:33] VITALS: BP 141/71; PULSE 74; RESP 18; O2SAT 97
[2017-02-25 08:36] VITALS: BP 169/91; PULSE 62; RESP 20; O2SAT 97
[2017-02-25] MEDS: Sodium Chloride LOK Flush 10 mL Syringe IV SCH ×2 (08:44→16:30)
[2017-02-25] MEDS: Senna-Docusate 8.6-50 mg Tablet PO SCH (08:44)
--- NOTE | 2017-02-25 09:23 | PCM.DIMED ---
Discharge Instructions Date of Service Feb 25, 2017 Dates of Hospitalization Feb 22, 2017 at 09:18 Discharge Diagnosis Discharge Diagnosis # Left femoral fracture /p ORIF 02/23,acute,poa #Ground-level fall Diet Discharge Diet: Low fat, Low Sodium Activity Discharge Activity: Other (continue physical therapy at longterm facility.) Call your provider Call your provider for: Fever or Chills, Shortness of breath, Bleeding, Chest pain, Vomitting, Excessive diarrhea, Weakness (unilateral) Patient Instructions Patient Instructions you were hospitalized due to left hip fracture.You underwent left open reduction and internal fixation. Please continue physical therapy at longterm facility. Please continue Lovenox 40 mg subcutaneous daily for 3 weeks for dvt Prophylaxis fall seems mechanical due to sleepwalking. Lorazepam may have contributed to the fall and thus discontinued upon discharge Orthopedics instructions Weightbearin% weightbearing on the left lower extremity with a front wheeled walker DVT prophylaxis: Lovenox 40 mg subcutaneous daily 3 weeks. Physical therapy for transfers, progressive ambulation, strengthening Wound care: Dressing changed to an island dressing today. Analgesia: Oral analgesia, preferably non-narcotic. Follow-up plan: In 2 weeks at [facility] with PA for wound check and at [address] Maddox with x-rays Follow-up with PCP in: 1 week (1 week after discharge from longterm facility) Provider: Daniel Maddox MD Follow-up in: 2 weeks Yannick Zepeda MD Feb 25, 2017 09:23
[2017-02-25] MEDS ORDERED: HYDR-4003 PO (09:24)
[2017-02-25] MEDS ORDERED: ENOX40DI8 SUBQ (09:24)
--- NOTE | 2017-02-25 09:32 | PCM.PNORTH ---
Subjective Date of Service: Feb 25, 2017 Visit Information: Reason for Visit Left Hip Fx Glf Surgery/Surgery Date Post-Op Day # Date of Admission: Feb 22, 2017 at 09:18 Hospital Day # Subjective Patient is progressing very slowly with his rehabilitation. He is only taking a couple of steps at bedside and still requires moderate assist for transfers. He is 50% weightbearing on the left lower extremity with a walker. Plan is for discharge to residential facility today and he is agreeable to this. Postop General: No Shortness of Breath, No Chest Pain, Good Appetite Pain Management: PO Objective Exam Objective Patient is seen sitting up in bed Vital Signs and I/O Vital Sign - Last Date Time Temp Pulse Resp B/P Pulse Ox O2 Delivery O2 Flow Rate FiO2 02/25/17 08:36 36.4 62 20 169/91 97 Room Air 02/23/17 12:23 3.00 Intake and Output 02/24/17 02/24/17 02/25/17 Cumulative From/Thru 15:00 23:00 07:00 02/22/17 09:37 - 02/25/17 05:33 Intake Total 637 ml 350 ml 5045 ml Output Total 450 ml 800 ml 3325 ml Balance 187 ml -450 ml 1720 ml Intake Oral 637 ml 350 ml 2507 ml IV Total 2538 ml Output Urine Total 450 ml 800 ml 3275 ml Estimated Blood Loss 50 ml # Voids 2 # Bowel Movements 0 0 Result Diagram: 02/24/17 0715 02/24/17 0715 General Appearance: Alert, Oriented X3, Cooperative, No Acute Distress Extremities: Distal Pulses Palpable, No Compartment Syndrom Noted, Thigh & Calf Soft/Nontender Postop Sensory Motor: Distal Motor Intact, Distal Sensation Intact, NVI Distally SURGICAL WOUND : Wound Location/Description Dressing is clean, dry and intact Incision General Appearance: No Direct Observation Activity: Ambulate with PT (50% WB with a FWW) Catheters: None Assessment & Plan Impression POD #3 Status post left hip ORIF Problems: Plan Patient is reportedly a sleep walker and takes multiple medications for sleep. He is likely at a higher risk for a fall due to his sleep walking and should be monitored carefully. Weightbearin% weightbearing on the left lower extremity with a front wheeled walker DVT prophylaxis: Lovenox 40 mg subcutaneous daily 3 weeks post op Physical therapy for transfers, progressive ambulation, strengthening Wound care: Change dressing every 2 days or sooner if needed Analgesia: Oral analgesia, preferably non-narcotic. On Saturday the patient may shower if the wound has no drainage present. Wound may be uncovered to shower. Let soap and water run over the wound, pat dry and apply a new dressing. Discharge plan: Discharge to SNF today Follow-up plan: In 2 weeks at [facility] with DIANA for wound check and at [address] Maddox with x-rays Pain Management: Tylenol, hydrocodone VTE Prophylaxis: Sub-Q Enoxaparin (40mg SQ QD [id number]), SCDs Anne Marie Rojas PA-C Feb 25, 2017 09:32
[2017-02-25 09:48] VITALS: PULSE 59
--- NOTE | 2017-02-25 14:39 | NUR ---
Social Work: Readiness for Discharge/Multidisciplinary Rounds D: EMR reviewed. Pt is on day 3 of hospitalization. Per multidisciplinary rounds, pt is medically stable for discharge to SNF today via BLS. XIOMARA received T/C from Katherine Chavez at [facility] stating they are not able to accept pt at this time but will place pt 1st on waiting list. Katherine stated that pt can go to another [facility] and they will do a transfer once bed is available at [facility]. SW placed T/C to pt's spouse regarding denial. Pt's spouse agreeable to go to [facility] and transfer when bed is available at [facility]. XIOMARA placed T/C to Stephie at [facility] notifying Stephie of pt's discharge today. Provided access. Stephie will review and update XIOMARA. A: Pt for whom a SNF if medically necessary. P: SW will await confirmation of acceptance from Stephie at [facility]. SW to update RN, pt and family. XIOMARA will continue to follow. CHAPARRO Macias Addendum: 02/25/17 at 1611 by GARRETT YU SS Correction: Pt not to transfer via BLS - pt to transfer via wheelchair van.
[2017-02-25 15:09] VITALS: BP 130/76; PULSE 62; RESP 18; O2SAT 93
--- NOTE | 2017-02-25 15:20 | PCM.DC.MED ---
Discharge Summary Date of Service Feb 25, 2017 Dates of Hospitalization Date of Hospital Admission Feb 22, 2017 at 09:18 Date of Discharge: Feb 25, 2017 Providers: Admitting Physician: Yannick Mcbride MD Primary Care Physician: Vinny Rodas MD Attending Physician: Yannick Mcbride MD Diagnosis at Time of Discharge Diagnosis at Time of Discharge # Left femoral fracture /p ORIF 02/23,acute,poa #Ground-level fall Consultations ortho Dr Maddox Procedures XRay, CTs & MRIs PROCEDURE: X-RAY LEFT FEMUR, TWO VIEWS ([id number]) INDICATIONS: HIP FRACTURE; PREOPERATIVE PLANNING IMPRESSION: Femoral neck fracture as discussed, but no injury below that area involving the left femur or knee. Dictated by: Chris Hayes M.D. on 02/22/2017 at 13:03 PROCEDURE: X-RAY CHEST ONE VIEW, PORTABLE ([id number]) INDICATIONS: preop IMPRESSION: No acute cardiopulmonary disease. Dictated by: Michoacano Tavera RRA Interpreted: Katie Kaur MD on 02/22/2017 at 11:07 ECG 12 Lead NSR Other Diagnostics DATE OF SURGERY: 02/22/2017 PREOPERATIVE DIAGNOSIS(ES): Impacted left femoral neck fracture. ICD 10 code S72.0028. POSTOPERATIVE DIAGNOSIS(ES): Impacted left femoral neck fracture. ICD 10 code S72.0028. PROCEDURE: Open reduction, internal fixation, valgus impacted left femoral neck fracture. CPT Code 08442. IMPLANTS UTILIZED: Synthes cannulated screws. SURGEON: Daniel Maddox MD. Brief History per HPI 82-year-old gentleman with no significant past medical history was transferred from [facility] due to left hip fracture following ground-level fall 5 hours ago. Patient states he sometimes sleepwalks and had GLF at 1 AM this morning while sleepwalking. Complains of left hip pain. Did not hit head. Fludrocortisone listed as home medication but patient not sure whether he is currently taking it or why he is taking it. He states he has worsening bilateral feet numbness and decreased sensation for the last [address] [facility] course:XR left femoral neck fracture. Labs unremarkable. transferred to [facility] for orthopedic evaluation Hospital Course 82-year-old gentleman with no significant past medical history was transferred from [facility] due to left hip fracture following ground-level fall 5 hours ago. # Left femoral fracture,acute,poa -Pain control with percocet and tylenol -Lovenox 40 mg sc daily dvt ppx for 3 weeks -Orthopedics Dr. Maddox -Urinalysis negative -continue PT at SNF #Brief episode of junctional tachycardia -Asymptomatic, lasted 30 seconds, K 3.6 repleted #Ground-level fall -Multifactorial(suspected bilateral lower extremity peripheral neuropathy, sleepwalking, use of benzodiazepines -will stop lorazepam upon discharge. Continue Neurontin for peripheral neuropathy full code ,verified from patient Disposition: Discharge to senior care facility for PT,patient dcd to [facility] for now and to be transferred to [facility] when bed is available Exam Vital Signs (Last) Date Time Temp Pulse Resp B/P Pulse Ox O2 Delivery O2 Flow Rate FiO2 02/25/17 15:09 36.4 62 18 130/76 93 Room Air 02/23/17 12:23 3.00 Exam Gen. patient is lying comfortably in hospital bed HEENT: Head is normocephalic atraumatic, Pupils equal and reactive, extraocular movements intact, Lungs clear to auscultation bilaterally Heart regular rate and rhythm without murmurs gallops or rubs Abdomen soft nontender without hepatosplenomegaly Extremities pulses are present dorsalis pedis posterior tibialis and radial. Left hip tenderness on passive movement. Clean dressing Psych alert and oriented to person place and time Neuro cranial nerves II through XII are grossly intact Lymph: There is no lymphadenopathy appreciated in the cervical supra infraclavicular regions : no vu Test 02/22/17 10:24 02/22/17 21:48 02/24/17 07:15 Prothrombin Time 10.7sec (8.1-12.5) Prothromb Time International Ratio 1.00ratio Hold [place] Top Tube Received (Received) Urine Color Yellow (YELLOW) Urine Appearance Clear (CLEAR,HAZY) Urine pH 7.0 (5.0-8.0) Urine Specific [place] 1.015 (1.003-1.035) Urine Protein Negativemg/dL (NEG,TRACE) Urine Glucose (UA) Negativemg/dL (NEGATIVE) Urine Ketones Negativemg/dL (NEGATIVE) Urine Occult Blood Moderate (NEGATIVE) Urine Nitrite Negative (NEGATIVE) Urine Bilirubin Negative (NEGATIVE) Urine Urobilinogen Normalmg/dL (NORMAL) Urine Leukocyte Esterase Negative (NEGATIVE) Urine RBC 3-10/hpf (0-2) Urine WBC 0-5/hpf (0-5) Urine Epithelial Cells Occasional/hpf (NONE-MOD) Urine Crystals None seen (NONE SEEN) Urine Bacteria None/hpf (NONE-FEW) Urine Hyaline Casts None/lpf (NONE) Urine Granular Casts None seen (NONE SEEN) Urine Waxy Casts None seen (NONE SEEN) Urine Red Blood Cell Casts None seen (NONE SEEN) Urine White Blood Cell Casts None seen (NONE SEEN) Urine Mucus None seen (None Seen) Urine Trichomonas None seen (NONE SEEN) Urine Yeast None (NONE SEEN) Urinalysis Comment None Urine Culture Reflexed Not indicated White Blood Count 8.2th/mm3 (3.8-10.1) Red Blood Count 3.62mil/mm3 (4.40-5.80) Hemoglobin 11.3g/dL (13.8-17.2) Hematocrit 33.0% (41.0-50.0) Mean Corpuscular Volume 91.2fL (81-100) Mean Corpuscular Hemoglobin 31.2pg (27.0-35.0) Mean Corpuscular Hemoglobin Concent 34.2% (32.0-37.0) Red Cell Distribution Width 12.9% (12.3-15.4) Platelet Count 144bil/L (150-400) Neutrophils (%) (Auto) 67.7% (40-74) Lymphocytes (%) (Auto) 11.5% (14-46) Monocytes (%) (Auto) 7.8% (4-12) Eosinophils (%) (Auto) 12.2% (0-5) Basophils (%) (Auto) 0.4% (0-3) Sodium Level 143mEq/L (134-144) Potassium Level 3.6mEq/L (3.5-5.2) Chloride Level 107mEq/L (97-108) Carbon Dioxide Level 23mmol/L (18-29) Blood Urea Nitrogen 22mg/dL (8-27) Creatinine 0.70mg/dL (0.76-1.27) Estimat Glomerular Filtration Rate 114mL/min (>59) Glucose Level 105mg/dL (60-99) Calcium Level 8.3mg/dL (8.5-10.1) Magnesium Level 2.0mg/dL (1.6-2.6) Total Bilirubin 0.8mg/dL (0.0-1.2) Aspartate Amino Transf (AST/SGOT) 25U/L (0-50) Alanine Aminotransferase (ALT/SGPT) 13U/L (0-44) Alkaline Phosphatase 45U/L (25-160) Total Protein 5.6g/dL (6.4-8.4) Albumin 3.4g/dL (3.4-5.0) Discharge Medications Discharge Medications Enoxaparin Sodium (Enoxaparin Sodium) 40 Mg/0.4 Ml Syringe 40 MG SUBQ Q24 Prescribed by: YANNICK MCBRIDE MD Fludrocortisone Acetate (Fludrocortisone Acetate) 0.1 Mg Tablet 0.1 MG PO UD ( Reported) Gabapentin (Gabapentin) 100 Mg Capsule 100 MG PO DAILY (Reported) As needed Hydrocodone-Acetaminophen 5-325 mg (Hydrocodone-Acetaminophen 5-325 mg) 1 Each Tablet 1 TABLET PO Q4H PRN PRN For Moderate Pain Prescribed by: YANNICK MCBRIDE MD Miscellaneous Medications Pramipexole Dihydrochloride (Mirapex) 0.25 Mg Tablet 0.25 MG PO (Reported) Followup Plan Disposition: [facility] Discharge Diet: Low fat, Low Sodium Discharge Activity: Other (continue physical therapy at senior care facility.) Patient Instructions you were hospitalized due to left hip fracture.You underwent left open reduction and internal fixation. Please continue physical therapy at senior care facility. Please continue Lovenox 40 mg subcutaneous daily for 3 weeks for dvt Prophylaxis fall seems mechanical due to sleepwalking. Lorazepam may have contributed to the fall and thus discontinued upon discharge Orthopedics instructions Weightbearin% weightbearing on the left lower extremity with a front wheeled walker DVT prophylaxis: Lovenox 40 mg subcutaneous daily 3 weeks. Physical therapy for transfers, progressive ambulation, strengthening Wound care: Dressing changed to an island dressing today. Analgesia: Oral analgesia, preferably non-narcotic. Follow-up plan: In 2 weeks at [facility] with PA for wound check and at [address] Maddox with x-rays Follow-up with PCP in: 1 week (1 week after discharge from senior care facility) Provider: Daniel Maddox MD Follow-up in: 2 weeks Time spent 35 minutes coordinating discharge copies to: Daniel Maddox MD, Melaku MD Feb 25, 2017 15:20
--- NOTE | 2017-02-25 16:12 | NUR ---
Social Work: Discharge/Multidisciplinary Rounds D: EMR reviewed. Pt is on day 3 of hospitalization. Pt discussed in multidisciplinary rounds and is medically stable for discharge to SNF via wheelchair van. Pt accepted to [facility]. Stephie at [facility] confirmed [facility] will provide transport at 1730 today. XIOMARA updated pt, RN, and pt's spouse - all agreeable to plan. Pt and spouse made aware that [facility] placed pt 1st on waiting list and will work with [facility] to transfer pt once bed is available. XIOMARA completed transfer packet, faxed discharge ppw to [facility], and updated UA/RN on transport time. A: Pt for whom a SNF is medically necessary. P: Pt to discharge to [facility] via [facility] transport at 1730 today. XIOMARA completed transfer packet, faxed discharge ppw to [facility], and updated UA/RN on transport time. Pt and family updated and agreeable to plan. CHAPARRO Macias
--- NOTE | 2017-02-25 18:34 | NUR ---
Discharge Pt transferred to [facility] at 1800 via carryme. Family notified of transfer and report called to Kaelyn at the facility. Pain well controlled today, last Tylenol given this morning with no requests for more and refusal prior to transport. Belongings with patient and dinner provided prior to leaving.
== END 2017-02-25 18:15 | DRG 482 ==
LOC: OSC 09:18
PROVIDERS: ADMIT Internal Medicine; ATTEND Internal Medicine
PROC: 0QH704Z Insertion of Internal Fixation Device into Left Upper Femur, Open Approach (ICD-10-PCS; principal; 2017-02-22 17:00)
DX: S72.012A Unspecified intracapsular fracture of left femur, initial encounter for closed fracture (principal); W18.30XA Fall on same level, unspecified, initial encounter; F51.3 Sleepwalking [somnambulism]; G62.9 Polyneuropathy, unspecified